=== PATIENT | female | born 1935 | race Caucasian/White ===

== ENCOUNTER 2017-03-09 10:34 | Emergency (ER) | payer MEDICARE, BC ==
[~2017-03-09] VITALS: Ht 154.9 cm; Wt 61.0 kg
[~2017-03-09 10:34] MED LIST: ASPI81CH3; DONE10TA14 PO; LIBRAX PO; LISI40TA PO; ROSU1TAB4 PO
[2017-03-09 10:37] VITALS: BP 153/69; PULSE 76; RESP 18; TEMP 98.1; O2SAT 100
[2017-03-09] MEDS ORDERED: VENTAER INH (11:04)
--- NOTE | 2017-03-09 11:08 | PD ---
HPI Chief Complaint: cough Time Seen by Provider: 10:54 Travel History International Travel<30 days: No Contact w/Intl Traveler<30days: No Traveled to known affect area: No History of Present Illness HPI This patient complains of cough and congestion. Duration one week. Saw her primary physician and was placed on a Z-Corbin which she is partly through. Denies fever or shortness of breath. Symptoms severity is moderate PFSH Past Medical History Dementia: Yes Hypertension: Yes Past Surgical History Mastectomy: Yes (LEFT BREAST) Social History Alcohol Use: No Tobacco Use: No Substance Use: No Allergies-Medications (Allergen,Severity, Reaction): Coded Allergies: No Known Allergies (Unverified , 04/14/16) Reported Meds & Prescriptions Reported Meds & Active Scripts Active Ventolin Hfa 18 GM Inh (Albuterol Sulfate) 90 Mcg/Act Aer 1 Puff INH Q4H PRN Reported Aspirin 81 Low Dose (Aspirin) 81 Mg Chw Rosuvastatin Calcium 5 Mg Tab 5 Mg PO DAILY Librax (Chlordiazepoxide/Clidinium) 5 - Cap 5 - PO Donepezil 10 mg 10 Mg Tab 10 Mg PO DAILY Prinivil 40 mg (Lisinopril) 40 Mg Tab 1 Tab PO DAILY Review of Systems General / Constitutional: No: Fever HENT: No: Headaches Cardiovascular: No: Chest Pain or Discomfort Respiratory: Positive: Cough Physical Exam Narrative GENERAL: Well-nourished, well-developed patient in no apparent distress. SKIN: Focused skin assessment reveals no rash and nodules. Skin is Warm and dry. HEAD: Atraumatic. Normocephalic. EYES: Pupils equal and round. No scleral icterus. No injection or drainage. ENT: No nasal bleeding or discharge. Mucous membranes pink and moist. NECK: Trachea midline. No JVD. CARDIOVASCULAR: Regular rate and rhythm. No murmur appreciated. RESPIRATORY: No accessory muscle use. Clear to auscultation. Breath sounds equal bilaterally. GASTROINTESTINAL: Abdomen soft, non-tender, nondistended. Hepatic and splenic margins not palpable. MUSCULOSKELETAL: No obvious deformities. No clubbing. No cyanosis. No edema. NEUROLOGICAL: Awake and alert. No obvious cranial nerve deficits. Motor grossly within normal limits. Normal speech. PSYCHIATRIC: Appropriate mood and affect; insight and judgment normal. Data Data Last Documented VS Vital Signs Date Time Temp Pulse Resp B/P (MAP) Pulse Ox O2 Delivery O2 Flow Rate FiO2 03/09/17 10:37 98.1 76 18 153/69 (97) 100 Room Air MDM Medical Decision Making Medical Screen Exam Complete: Yes Emergency Medical Condition: Yes Medical Record Reviewed: Yes Differential Diagnosis Bronchitis, pneumonia, URI Narrative Course I have reviewed the patient's electronic medical record. Presentation is consistent with an acute viral bronchitis. She is currently on Zithromax which she will finish She wanted something for cough Prescribed her an albuterol inhaler to try We did discuss the cough is a defense reflux and we are taught not to stifle it with medication however Diagnosis Primary Impression: Acute bronchitis Qualified Codes: J20.9 - Acute bronchitis, unspecified Additional Instructions: The patient was advised to follow up with their physician and return if they worsen. Med/Other Pt SpecificInfo: Prescription(s) given Scripts Albuterol 18 GM Inh (Ventolin Hfa 18 GM Inh) 90 Mcg/Act Aer 1 PUFF INH Q4H Y for SHORTNESS OF BREATH, #1 INHALER 0 Refills Prov: Brayan Vallecillo MD 03/09/17 Disposition: 01 DISCHARGE HOME Condition: Stable Brayan Vallecillo MD Mar 09, 2017 11:08
[2017-03-09] MEDS ORDERED: ZITH250T PO (11:11)
[2017-03-09] MEDS ORDERED: ROSU5 PO (11:11)
[2017-03-09] MEDS ORDERED: LISI40TA PO (11:11)
[2017-03-09] MEDS ORDERED: ASPI81TA11 PO (11:11)
[2017-03-09] MEDS ORDERED: VENL37.5 PO (11:11)
[2017-03-09] MEDS ORDERED: SPIRCAP INH (11:11)
[2017-03-09] MEDS ORDERED: DONE10TA7 PO (11:11)
== END 2017-03-09 11:36 | disposition home or self-care (01) ==
LOC: PHED 10:34
DX: J20.9 Acute bronchitis, unspecified (principal); F03.90 Unspecified dementia, unspecified severity, without behavioral disturbance, psychotic disturbance, mood disturbance, and anxiety; I10 Essential (primary) hypertension
CPT/HCPCS: 99283

== ENCOUNTER 2018-01-07 21:05 | Observation (INO) ==
--- NOTE | 2018-01-07 21:41 | ED ---
HPI General Chief Complaint: Nausea/Vomiting/Diarrhea Stated Complaint: Diff.eating and drinking Source: patient and family Mode of arrival: ambulatory Limitations: other (Limited historian secondary to history of dementia) History of Present Illness HPI narrative: The patient is a 82-year-old female who presents to the emergency department with a family member for dysphagia and possible nausea and vomiting with abdominal pain. The patient is a somewhat limited historian secondary to history of dementia. The patient apparently ate lunch earlier today, sandwich, which she felt like there was food stuck in her throat. The patient went to the bathroom is able to vomit. The patient states she feels like there is something stuck in the neck region, however, she has been able to tolerate water per her report at the assisted living facility. The [facility] apparently called the son who then arrived, picked up the patient, brought the patient to the emergency department. 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 The patient denies any history of previous food bolus impactions and states that she is currently tolerating water. She denies any current abdominal pain or diarrhea. Symptoms are moderate. Related Data Patient : No Home Medications Medication Instructions Recorded Confirmed Aspirin Low Dose 81 mg PO HS 01/07/18 01/07/18 MegaRed [place]-3 Krill Oil 350 mg PO DAILY 01/07/18 01/07/18 azelastine 2 sprays INTRANASAL BID PRN 01/07/18 01/07/18 coconut oil 1,000 mg PO DAILY 01/07/18 01/07/18 diclofenac sodium See Label Instructions .ROUTE 01/07/18 01/07/18 .COMPLEX donepezil 10 mg PO DAILY 01/07/18 01/07/18 lisinopril 40 mg PO DAILY 01/07/18 01/07/18 memantine 10 mg PO DAILY 01/07/18 01/07/18 rosuvastatin 5 mg PO DAILY 01/07/18 01/07/18 venlafaxine 75 mg PO DAILY 01/07/18 01/07/18 vitamin E 400 units PO DAILY 01/07/18 01/07/18 Allergies Allergy/AdvReac Type Severity Reaction Status Date / Time No Known Allergies Allergy Unverified 01/07/18 22:01 Review of Systems Except as stated in HPI: all other systems reviewed are negative Constitutional Denies poor appetite ENT Reports dysphagia Cardiovascular Denies chest pain and Reports pedal edema (Intermittent ankle swelling) Respiratory Denies dyspnea Gastrointestinal Denies abdominal pain, Reports dysphagia, Denies early satiety, Denies nausea, Denies odynophagia and Reports vomiting (Vomited after eating a sandwich at lunchtime) Genitourinary Denies dysuria [facility] Medical History Medical History Breast cancer (Acute) Dementia (Acute) HTN (hypertension) (Acute) Stroke (Acute) Vocal cord paralysis (Acute) Surgical History Surgical History H/O mastectomy (Acute) History of carotid endarterectomy (Acute) Hx of appendectomy (Acute) Hx of tonsillectomy (Acute) Social History Social History Substance History: No History of Abuse Smoking Status: Former smoker How Often Do You Have a Drink Containing Alcohol: Never Recent Out of Country Travel within the Last 8 Weeks: No Exam Narrative Exam Narrative: GENERAL: Awake, alert, pleasant 82-year-old female who appears her stated age and is in no acute respiratory distress. SKIN: Focused skin assessment warm/dry. HEAD: Atraumatic. Normocephalic. EYES: No injection or drainage. ENT: No nasal bleeding or discharge. Mucous membranes pink and moist. NECK: Trachea midline. No JVD. CARDIOVASCULAR: Regular rate and rhythm. No murmur appreciated. RESPIRATORY: No accessory muscle use. Clear to auscultation. Breath sounds equal bilaterally. GASTROINTESTINAL: Abdomen soft, non-tender, nondistended. No rebound tenderness , guarding, rigidity. MUSCULOSKELETAL: No obvious deformities. No clubbing. No cyanosis. Trace pedal edema bilaterally that is pitting. Superficial varicosities noted. NEUROLOGICAL: Awake and alert. No obvious cranial nerve deficits. Motor grossly within normal limits. Normal speech. Oriented to person and place. PSYCHIATRIC: Appropriate mood and affect; insight and judgment normal. Course Reevaluation(s) Reevaluation #1: The patient was reevaluated, unable to drink water. Therefore , the on-call production repairer was paged. I discussed the patient with Dr. Enciso who will try to perform the endoscopy tonight. However, the patient lives in an [facility] may need to stay until morning to have the procedure performed she request 23 hour observation to the hospital service. Time: 22:30 Medical Decision Making MDM Narrative Medical decision making narrative: IV was established, labs are drawn and sent, and the patient was placed on cardiac telemetry monitoring and continuous pulse oximetry monitoring. EKG was ordered and interpreted. Chest x-ray was obtained. The patient was given a p.o. challenge with water. Chest x-ray is unremarkable. Laboratory evaluation is unremarkable, LFTs and lipase are within normal limits. White count is unremarkable. The patient was given a p.o. challenge. The patient drinks water, however, 30 seconds later all of the water came back up. She was unable to pass water. The patient was administer glucagon. There is no improvement in the patient's symptoms. Therefore, the on -call production repairer was paged. I discussed the patient with Dr. Enciso who will try to perform the endoscopy tonight at [facility]. However, she recommends 23 hour observation to the hospitalist service as the patient may not be able had a procedure performed into the morning and then arrangements will need to be made to get the patient back to [facility]. Therefore, [facility] hospitalist were paged for 23 hour observation. I discussed the patient with Dr. Durant who agrees with 23 hour observation. Differential Diagnosis Differential Diagnosis: Differential diagnosis includes food bolus impaction, achalasia, esophageal motility disorder, Schatzki's ring, gastritis, peptic ulcer disease, pancreatitis, ACS. Lab Data Lab results reviewed: Yes I reviewed the patient's lab results. Lab results narrative: The patient's CBC, CMP, and troponin are unremarkable. Result diagrams: 01/07/18 21:51 01/07/18 21:51 Lab Results 01/07/18 01/07/18 Range/Units 21:51 21:51 CBC w Diff Auto diff final WBC 5.6 (4.0-11.0) th/mm3 RBC 4.28 (4.00-5.30) mil/mm3 Hgb 13.1 (11.6-15.3) gm/dL Hct 38.8 (35.0-46.0) % MCV 90.9 (80.0-100.0) fL MCH 30.7 (27.0-34.0) pg MCHC 33.8 (32.0-36.0) % RDW 13.2 (11.6-17.2) % Plt Count 158 (150-450) th/mm3 MPV 9.9 (7.0-11.0) fL Neut % (Auto) 53.4 (16.0-70.0) % Lymph % (Auto) 33.9 (9.0-44.0) % Martin % (Auto) 8.4 H (0.0-8.0) % Eos % (Auto) 2.0 (0.0-4.0) % Baso % (Auto) 2.3 H (0.0-2.0) % Neut # (Auto) 3.0 (1.8-7.7) th/mm3 Lymph # (Auto) 1.9 (1.0-4.8) th/mm3 Martin # (Auto) 0.5 (0.0-0.9) th/mm3 Eos # (Auto) 0.1 (0.0-0.4) th/mm3 Baso # (Auto) 0.1 (0.0-0.2) th/mm3 WBC Differential . Sodium 142 (136-145) meq/L Potassium 4.3 (3.5-5.1) meq/L Chloride 108 H (98-107) meq/L Carbon Dioxide 27.0 (21.0-32.0) meq/L Anion Gap 7 (5-15) meq/L BUN 12 (7-18) mg/dL Creatinine 0.79 (0.50-1.00) mg/dL Estimated GFR 70 L (>89) mL/min Random Glucose 103 (74-106) mg/dL Calcium 9.0 (8.5-10.1) mg/dL Total Bilirubin 0.4 (0.2-1.0) mg/dL AST 18 (15-37) U/L ALT 14 (10-53) U/L Alkaline Phosphatase 88 (45-117) U/L Total Creatine Kinase 55 (26-192) U/L Troponin I Less than 0.02 L (0.02-0.05) ng/mL Total Protein 7.0 (6.4-8.2) g/dL Albumin 3.7 (3.4-5.0) g/dL Lipase 159 (73-393) U/L Imaging Data Attestation: I personally reviewed and interpreted this imaging study as follows : My impression: No acute findings Radiologist's impression: ITS Impressions Chest X-Ray 01/07/18 21:34 CONCLUSION: No acute findings. Surgical clips left axillary region. ECG Data EKG Prior to Arrival: No Attestation: I personally reviewed and interpreted this ECG as follows: Interpretation: EKG reveals normal sinus rhythm with a rate of 67. Right bundle branch block with QRS of 140 ms. WA interval 136 ms. Discharge Plan Discharge Disposition Patient Disposition: 30 Still Patient Discharge Condition Condition: Stable Discharge Details Discharge Problem: Esophageal obstruction due to food impaction Physicians Team ED Provider: Marcelo Aldridge Primary Care Provider: Karen Loaiza Rxs /Orders / Referrals /Forms Prescriptions: No Action Aspirin Low Dose 81 mg PO HS RF: 0 MegaRed [place]-3 Krill Oil 350 mg PO DAILY RF: 0 azelastine 2 sprays Intranasal BID PRN (Reason: Congestion) RF: 0 coconut oil 1,000 mg PO DAILY RF: 0 diclofenac sodium See Label Instructions .ROUTE .COMPLEX RF: 0 donepezil 10 mg PO DAILY RF: 0 lisinopril 40 mg PO DAILY RF: 0 memantine 10 mg PO DAILY RF: 0 rosuvastatin 5 mg PO DAILY RF: 0 venlafaxine 75 mg PO DAILY RF: 0 vitamin E 400 units PO DAILY RF: 0 Status ED Status: Admitted Observation Patient
[2018-01-07] MEDS ORDERED: Sod Chloride 0.9% Inj 1,000 ML IV.CONT SCH ×2 (21:45→23:15)
[2018-01-07 21:58] LABS: Baso # (Auto) 0.1 th/mm3 (0.0-0.2); Baso % (Auto) 2.3 % (0.0-2.0); Eos # (Auto) 0.1 th/mm3 (0.0-0.4); Hematocrit 38.8 % (35.0-46.0); Hemoglobin 13.1 gm/dL (11.6-15.3); Lymph # (Auto) 1.9 th/mm3 (1.0-4.8); Lymph % (Auto) 33.9 % (9.0-44.0); Mean Corpuscular HGB Conc 33.8 % (32.0-36.0); Mean Corpuscular Hemoglobin 30.7 pg (27.0-34.0); Mean Corpuscular Volume 90.9 fL (80.0-100.0); Mean Platelet Volume 9.9 fL (7.0-11.0); Mono # (Auto) 0.5 th/mm3 (0.0-0.9); Mono % (Auto) 8.4 % (0.0-8.0); Neut % (Auto) 53.4 % (16.0-70.0); Platelet Count 158 th/mm3 (150-450); Red Blood Count 4.28 mil/mm3 (4.00-5.30); Red Cell Distribution Width 13.2 % (11.6-17.2); White Blood Count 5.6 th/mm3 (4.0-11.0)
--- NOTE | 2018-01-07 22:06 | XR ---
EXAM DATE: 01/07/2018 9:58 PM EDT AGE/SEX: 82 years / Female INDICATIONS: Shortness of breath. CLINICAL DATA: This is the patient's initial encounter. Patient reports that signs and symptoms have been present for 1 day and indicates a pain score of Nonresponsive. MEDICAL/SURGICAL HISTORY: None. None. COMPARISON: No prior exams available for comparison. FINDINGS: A single AP view of the chest demonstrates the lungs to be symmetrically aerated without evidence of mass, infiltrate or effusion. The cardiomediastinal contours are unremarkable. Osseous structures a re intact. CONCLUSION: No acute findings. Surgical clips left axillary region. Electronically signed by: Ernst Jeffries MD 01/07/2018 10:05 PM EDT
[2018-01-07 22:07] LABS: Chloride 108 meq/L (98-107); Potassium 4.3 meq/L (3.5-5.1); Sodium 142 meq/L (136-145)
[2018-01-07 22:12] LABS: Albumin 3.7 g/dL (3.4-5.0); Anion Gap 7 meq/L (5-15); Blood Urea Nitrogen 12 mg/dL (7-18); Glucose,Random 103 mg/dL (74-106); Lipase 159 U/L (73-393)
[2018-01-07 22:15] LABS: Alanine Aminotransferase 14 U/L (10-53); Aspartate Aminotransferase 18 U/L (15-37); Glomerular Filtration Rate 70 mL/min (>89)
[2018-01-07 22:17] LABS: Alkaline Phosphatase 88 U/L (45-117)
[2018-01-07 22:23] LABS: Creatine Kinase 55 U/L (26-192)
[2018-01-07] MEDS ORDERED: Bisacodyl 10 MG Supp RECTAL PRN (23:05)
[2018-01-08] MEDS ORDERED: Chlorhexidine Gluconate 2% 1 Pack (2 Cloths) TOPICAL SCH (00:30)
[2018-01-08] MEDS ORDERED: Sodium Chlor 0.9% Inj 500 ML IV.SIG SCH (01:00)
--- NOTE | 2018-01-08 01:20 | MR ---
cc: Deb Enciso MD DATE: 01/08/2018 REFERRING PHYSICIAN: Dr. Durant REASON FOR CONSULTATION AND PROCEDURE: Dysphagia, odynophagia, inability to swallow saliva, foreign body in the esophagus. CONSENT: After the risks, benefits, alternatives, indications, and limitations were explained to the patient and her son, consent was signed. They were informed about the risk of bleeding, perforation, oversedation, allergic reaction to the medication, missed lesion or failed procedure. DESCRIPTION OF PROCEDURE: The patient was placed in the left lateral decubitus and after the patient was fully sedated by Anesthesia, upper endoscope was gently sent through the oral cavity, and under direct visualization, esophagus was intubated. In the distal esophagus, a foreign body consistent with a food bolus was seen that was pushed down into the stomach. Then, the scope was introduced into the stomach and down into the duodenum. Then, the scope was slowly withdrawn and the mucosa was fully examined, including color, texture, anatomy and motility. In the fundus, retroflexion was performed. FINDINGS: Stricture in the distal esophagus with superficial erosions, very friable, bleeding easily, possibly secondary to recent food bolus impaction. Biopsy was performed. No dilatation was done at this time secondary to the above. No other pathology was noted. RECOMMENDATION: Soft diet. Start proton pump inhibitors b.i.d. Upper endoscopy with dilatation in a week. Chew food well, cut food in small pieces. I would like to thank Dr. Durant for referring her to our office for consultation. Deb Enciso MD BSB/SM , 12:58 AM , 01:18 AM
[2018-01-08 06:25] LABS: Chloride 113 meq/L (98-107); Potassium 3.9 meq/L (3.5-5.1); Sodium 147 meq/L (136-145)
[2018-01-08 06:31] LABS: Albumin 3.2 g/dL (3.4-5.0); Anion Gap 8 meq/L (5-15); Blood Urea Nitrogen 11 mg/dL (7-18); Calcium 8.5 mg/dL (8.5-10.1); Carbon Dioxide 25.9 meq/L (21.0-32.0); Glucose,Random 94 mg/dL (74-106)
[2018-01-08 06:34] LABS: Alanine Aminotransferase 16 U/L (10-53); Aspartate Aminotransferase 11 U/L (15-37); Glomerular Filtration Rate Greater Than 89 mL/min (>89)
[2018-01-08 06:35] LABS: Baso % (Auto) 0.3 % (0.0-2.0); Eos # (Auto) 0.1 th/mm3 (0.0-0.4); Eos % (Auto) 2.1 % (0.0-4.0); Hematocrit 36.6 % (35.0-46.0); Lymph # (Auto) 1.5 th/mm3 (1.0-4.8); Lymph % (Auto) 29.2 % (9.0-44.0); Mean Corpuscular HGB Conc 32.8 % (32.0-36.0); Mean Corpuscular Hemoglobin 29.8 pg (27.0-34.0); Mean Corpuscular Volume 90.9 fL (80.0-100.0); Mean Platelet Volume 9.8 fL (7.0-11.0); Mono # (Auto) 0.5 th/mm3 (0.0-0.9); Mono % (Auto) 9.7 % (0.0-8.0); Neut # (Auto) 3.2 th/mm3 (1.8-7.7); Neut % (Auto) 58.7 % (16.0-70.0); Platelet Count 146 th/mm3 (150-450); Red Blood Count 4.02 mil/mm3 (4.00-5.30); White Blood Count 5.3 th/mm3 (4.0-11.0)
[2018-01-08 06:36] LABS: Total Protein 6.1 g/dL (6.4-8.2)
[2018-01-08 06:37] LABS: Alkaline Phosphatase 80 U/L (45-117)
[2018-01-08 07:49] VITALS: RESP 20
[2018-01-08] MEDS ORDERED: hydrALAZINE HCl Inj 20 MG/ML Vial IV.PUSH PRN (08:46)
--- NOTE | 2018-01-08 08:46 | P.HP ---
History of Present Illness Primary Care Physician: Karen Loaiza MD History of Present Illness: 82-year-old female with known history of hypertension, history of breast cancer , dementia who presented to the emergency department because of sudden onset of difficulty in swallowing food. Patient states that approximate 1 PM yesterday she tried to drink something in it would get stuck right in the middle part of her chest and she felt some bubbling and gurgling and come right back up again. Patient was not able to tolerate anything by mouth throughout the remaining days so she brought to the emergency department by son. Patient had workup done in the emergency department and a urgent endoscopy performed by Dr. Enciso. Patient had a stricture in the distal esophagus with superficial erosions are very friable, bleeding easily and possibly secondary to recent food bolus impaction. Is recommended patient start a soft diet, start proton pump inhibitor twice daily. Upper endoscopy again in 1 week. However when evaluated patient this morning she was still having difficulty with liquids and solids. She is not able to swallow again and she feels as if it goes to the mid part of her chest again it comes right back up. States that it is no different than when she started her symptoms yesterday. - Diagnosis (1) Dysphagia (2) Hypertension Review of Systems All other systems reviewed negative except as stated in HPI Gastrointestinal: Reports difficulty swallowing PMFSH - History History Provided By: Patient - Medical History Medical History: Medical History (Last Reviewed 01/08/18 @ 08:29 by PEYTON Ruiz) Breast cancer Dementia HTN (hypertension) Stroke Vocal cord paralysis - Surgical History Surgical History: Surgical History (Last Reviewed 01/08/18 @ 08:29 by PEYTON Ruiz) H/O mastectomy History of carotid endarterectomy Hx of appendectomy Hx of tonsillectomy - Family History Family History: Family History (Last Reviewed 01/08/18 @ 08:29 by PEYTON Ruiz) Father Heart disease Mother Natural - Tobacco History Second Hand Smoke Exposure: No Tobacco Use In Past 30 Days: No Smoking Status: Former smoker - Alcohol History How Often Do You Have a Drink Containing Alcohol: Monthly or less - Substance Use History Substance History: No History of Abuse - Travel History Recent Travel Out of the Country Within the Last 8 Weeks: No - Immunization History Tetanus Immunization: Unsure Medications and Allergies Active Medications: Active Medications Al Hydroxide/Mg Hydroxide (Milk Of Katia [place]) 30 ml PO Q12H PRN PRN Reason: Mild Constipation Bisacodyl (Dulcolax Supp) 10 mg RECTAL DAILY PRN PRN Reason: SEVERE CONSITIPATION Chlorhexidine Gluconate (Chlorhexidine 2% Cloth) 3 pack TOPICAL PRODUCT SAFETY ADMINISTRATOR [facility] Stop: 01/11/18 00:17 Sodium Chloride (Ns Inj) 1,000 mls @ 65 mls/hr IV.CONT .[id number] [facility] Last Infusion: 01/08/18 01:15 Dose: Infused Lactated Ringer's (Lr 1000 Ml Inj) 1,000 mls @ 30 mls/hr IV.SIG .Q24H [facility] Stop: 01/11/18 00:17 Last Admin: 01/08/18 02:18 Dose: 30 mls/hr Sodium Chloride (Ns Inj) 500 mls @ 30 mls/hr IV.SIG .Q10H [facility] Stop: 01/11/18 00:17 Lactulose (Lactulose Liq) 30 ml PO DAILY PRN PRN Reason: SEVERE CONSITIPATION Pantoprazole Sodium (Protonix) 20 mg PO DAILY [facility] Povidone Iodine (Betadine 5% Antisepsis Kit) 1 applicatio EACH NARE PRODUCT SAFETY ADMINISTRATOR [facility] Stop: 01/11/18 00:17 Sennosides (Senokot) 17.2 mg PO Q12H PRN PRN Reason: Moderate Constipation Sodium Chloride (Ns Flush) 2 ml IV.FLUSH PRN PRN PRN Reason: FLUSH AFTER USING IV ACCESS Allergies Allergy/AdvReac Type Severity Reaction Status Date / Time No Known Allergies Allergy Verified 01/08/18 00:16 Home Medications Medication Instructions Recorded Confirmed Type Aspirin Low Dose 81 mg PO HS 01/07/18 01/07/18 History MegaRed [place]-3 Krill Oil 350 mg PO DAILY 01/07/18 01/07/18 History azelastine 2 sprays INTRANASAL BID PRN 01/07/18 01/07/18 History coconut oil 1,000 mg PO DAILY 01/07/18 01/07/18 History diclofenac sodium See Label Instructions .ROUTE 01/07/18 01/07/18 History .COMPLEX donepezil 10 mg PO DAILY 01/07/18 01/07/18 History lisinopril 40 mg PO DAILY 01/07/18 01/07/18 History memantine 10 mg PO DAILY 01/07/18 01/07/18 History rosuvastatin 5 mg PO DAILY 01/07/18 01/07/18 History venlafaxine 75 mg PO DAILY 01/07/18 01/07/18 History vitamin E 400 units PO DAILY 01/07/18 01/07/18 History Exam Vital signs: Vital Signs 01/07/18 23:45 01/07/18 23:49 01/07/18 23:53 Temperature 97.3 F L Pulse Rate 80 66 Respiratory Rate 16 16 Blood Pressure 206/84 H 192/70 H Pulse Oximetry 97 100 01/08/18 00:51 01/08/18 01:15 01/08/18 01:20 Temperature 98.0 F Pulse Rate 76 71 71 Respiratory Rate 18 18 Blood Pressure 152/70 H 141/64 H Pulse Oximetry 100 99 01/08/18 04:00 01/08/18 07:48 Temperature 98.3 F 97 F L Pulse Rate 77 77 Respiratory Rate 16 20 Blood Pressure 146/65 H 146/66 H Pulse Oximetry 96 97 Intake & Output 01/07/18 01/08/18 01/08/18 18:59 06:59 18:59 Intake Total 400 / 400 Output Total 0 / 0 Balance 400 / 400 Weight 65.8 kg Intake: IV 400 / 400 NS Inj 1,000 ML @ 65 mls/hr IV. 400 / 400 CONT .[id number] [facility] Rx#: [id number] Output: Urine 0 / 0 Other: # Voids 0 Weight On Admission 63.503 kg Narrative: GENERAL: Well-developed, well-nourished, in no acute distress. alert and orientated HEENT: Head is normocephalic without any lesions or masses noted. Facial features are symmetric. Eyes: Pupils equal round reactive to light. Extraocular muscles are intact. Conjunctivae were clear. Oropharyngeal: Pharynx without any erythema edema. Tongue is midline without deviation. Buccal mucosa is moist without any masses or lesions NECK: Supple without any masses. Trachea midline no deviation. No JVD, no bruits are appreciated CARDIAC: Regular rhythm, regular rate. S1/S2 are heard. No murmurs gallops or rubs. LUNGS: Clear to auscultation bilaterally. No wheeze, rhonchi or rales. No use of accessory muscles on inspiration or expiration. ABDOMEN: Soft, nontender. Nondistended. Bowel sounds heard in all 4 quadrants. No organomegaly or masses. Negative rebound, negative guarding EXTREMITIES: No edema, pulses are equal bilaterally. No cyanosis or clubbing NEUROLOGY: Mood and affect appear appropriate. Cranial nerves II through XII grossly intact. Muscle strength 5/5 in upper and lower extremities bilaterally. Deep tendon reflexes are 2+ in upper and lower extremities bilaterally. Results - Labs CBC & Chem 7: 01/08/18 05:28 01/08/18 05:28 Labs: Laboratory Results - last 24 hr 01/07/18 01/07/18 01/08/18 21:51 21:51 05:28 CBC w Diff Auto diff final Auto diff final WBC 5.6 5.3 RBC 4.28 4.02 Hgb 13.1 12.0 Hct 38.8 36.6 MCV 90.9 90.9 MCH 30.7 29.8 MCHC 33.8 32.8 RDW 13.2 13.0 Plt Count 158 146 L MPV 9.9 9.8 Neut % (Auto) 53.4 58.7 Lymph % (Auto) 33.9 29.2 Bureau % (Auto) 8.4 H 9.7 H Eos % (Auto) 2.0 2.1 Baso % (Auto) 2.3 H 0.3 Neut # (Auto) 3.0 3.2 Lymph # (Auto) 1.9 1.5 Bureau # (Auto) 0.5 0.5 Eos # (Auto) 0.1 0.1 Baso # (Auto) 0.1 0.0 WBC Differential . . Sodium 142 Potassium 4.3 Chloride 108 H Carbon Dioxide 27.0 Anion Gap 7 BUN 12 Creatinine 0.79 Estimated GFR 70 L Random Glucose 103 Calcium 9.0 Total Bilirubin 0.4 AST 18 ALT 14 Alkaline Phosphatase 88 Total Creatine Kinase 55 Troponin I Less than 0.02 L Total Protein 7.0 Albumin 3.7 Lipase 159 01/08/18 05:28 CBC w Diff WBC RBC Hgb Hct MCV MCH MCHC RDW Plt Count MPV Neut % (Auto) Lymph % (Auto) Bureau % (Auto) Eos % (Auto) Baso % (Auto) Neut # (Auto) Lymph # (Auto) Bureau # (Auto) Eos # (Auto) Baso # (Auto) WBC Differential Sodium 147 H Potassium 3.9 Chloride 113 H Carbon Dioxide 25.9 Anion Gap 8 BUN 11 Creatinine 0.61 Estimated GFR Greater than 89 Random Glucose 94 Calcium 8.5 Total Bilirubin 0.6 AST 11 L ALT 16 Alkaline Phosphatase 80 Total Creatine Kinase Troponin I Total Protein 6.1 L D Albumin 3.2 L Lipase - Imaging Impressions Chest X-Ray 01/07/18 21:34 CONCLUSION: No acute findings. Surgical clips left axillary region. Caprini VTE Risk Assessment Caprini VTE Risk Assessment: Moderate/High Risk (score >= 2) Caprini Risk Assessment Model: Point Value = 1 Point Value = 2 Point Value = 3 Point Value = 5 Age 41-60 Minor surgery BMI > 25 kg/m2 Swollen legs Varicose veins or History of unexplained or recurrent spontaneous Oral contraceptives or hormone replacement Sepsis (< 1 month) Serious lung disease, including pneumonia (< 1 month) Abnormal pulmonary function Acute myocardial infarction Congestive heart failure (< 1 month) History of inflammatory bowel disease Medical patient at bed rest Age 61-74 Arthroscopic surgery Major open surgery (> 45 min) Laparoscopic surgery (> 45 min) Malignancy Confined to bed (> 72 hours) Immobilizing plaster cast Central venous access Age >= 75 History of VTE Family history of VTE Factor V Leiden Prothrombin [id number] Lupus anticoagulant Anticardiolipin antibodies Elevated serum homocysteine Heparin-induced thrombocytopenia Other congenital or acquired thrombophilia Stroke (< 1 month) Elective arthroplasty Hip, pelvis, or leg fracture Acute spinal cord injury (< 1 month) Prophylaxis Regimen: Total Risk Factor Score Risk Level Prophylaxis Regimen 0-1 Low Early ambulation 2 Moderate Order ONE of the following: *Sequential Compression Device (SCD) *Heparin 5000 units SQ BID 3-4 Higher Order ONE of the following medications: *Heparin 5000 units SQ TID *Enoxaparin/Lovenox 40 mg SQ daily (WT < 150 kg, CrCl > 30 mL/min) *Enoxaparin/Lovenox 30 mg SQ daily (WT < 150 kg, CrCl > 10-29 mL/min) *Enoxaparin/Lovenox 30 mg SQ BID (WT < 150 kg, CrCl > 30 mL/min) AND/OR *Sequential Compression Device (SCD) 5 or more Highest Order ONE of the following medications: *Heparin 5000 units SQ TID (Preferred with Epidurals) *Enoxaparin/Lovenox 40 mg SQ daily (WT < 150 kg, CrCl > 30 mL/min) *Enoxaparin/Lovenox 30 mg SQ daily (WT < 150 kg, CrCl > 10-29 mL/min) *Enoxaparin/Lovenox 30 mg SQ BID (WT < 150 kg, CrCl > 30 mL/min) AND *Sequential Compression Device (SCD) Assessment and Plan - Assessment (1) Dysphagia Code(s): R13.10 - Dysphagia, unspecified Status: Acute Onset Date: ~ Plan: -Patient has undergone emergent endoscopy with stricture and food bolus impaction which was pushed into the stomach. -GI recommended the patient follow-up in 1 week for dilatation -Patient still unable to swallow any liquids or solids at this time -Make patient n.p.o. again -Discussed with financial advisor who indicated the patient can undergo speech therapy evaluation with possible modified barium swallow -Patient will likely need to undergo endoscopy again with dilatation if her symptoms persist (2) Hypertension Code(s): I10 - Essential (primary) hypertension Status: Acute Plan: -Patient unable tolerate anything by mouth at this time -IV Vasotec and Apresoline as needed -We will start oral medication once patient able to swallow. - Plan DVT prevention -Sequential compression devices (1) Dysphagia Qualifiers: Dysphagia type: oropharyngeal phase Qualified Code(s): R13.12 - Dysphagia, oropharyngeal phase
[2018-01-08] MEDS ORDERED: Pantoprazole Sodium 20 MG DR Tablet PO SCH (09:00)
[2018-01-08] MEDS ORDERED: Sodium Chloride 0.45 % Inj 1,000 ML IV.CONT SCH (09:00)
[2018-01-08] MEDS: Sodium Chloride 0.45 % Inj 1,000 ML IV.CONT SCH (14:37)
[2018-01-08] MEDS ORDERED: Pantoprazole Inj 40 MG Vial IV.PUSH SCH (15:00)
--- NOTE | 2018-01-08 15:30 | MB ---
cc: Deb Enciso MD DATE: 01/08/2018 REFERRING PHYSICIAN: Dr. Richardson DATE OF CONSULTATION: 01/08/2018 REASON FOR CONSULTATION: Dysphagia, inability to swallow, foreign body in the esophagus. HISTORY OF PRESENT ILLNESS: Mrs. Patel is an 82-year-old lady with history of breast cancer, hypertension and dementia, who was brought by her family after she was noted to have difficulty swallowing. According to the family, around 1 p.m. yesterday she tried to drink something, got stuck in the middle of her chest, felt some bubbling and gurgling and came right back up. Since then, she was unable to tolerate any kind of food. She was brought here for further evaluation and treatment of by her son. According to the son, she never had this type of problem before. There was a history of vocal cord surgery, but no other history in regard to reflux or dysphagia. PAST MEDICAL HISTORY: Breast cancer, dementia, hypertension, vocal cord paralysis, history of stroke. PAST SURGICAL HISTORY: Mastectomy, carotid endarterectomy, appendectomy and tonsillectomy. FAMILY HISTORY: No information is available. SOCIAL HISTORY: Denies smoking, drinking or drug use. ALLERGIES: NO KNOWN ALLERGIES. MEDICATIONS: 1. Bisacodyl. 2. Enalapril. 3. Lactulose. 3. Protonix. REVIEW OF SYSTEMS: The patient is unable to give a good history, but there is no history of weight loss, fever or chills, melena, hematemesis, hematochezia or any other GI symptoms or complaint. PHYSICAL EXAMINATION: GENERAL: She is sitting comfortably in bed in no acute distress. VITAL SIGNS: Temperature 97.3, heart 80, respirations 16, blood pressure 192/70. HEENT: PERRLA. NECK: No JVD. No lymphadenopathy. CHEST: Clear to auscultation and palpation. CARDIOVASCULAR: S1, S2. No murmur. ABDOMEN: Soft, nontender. Bowel sounds are present. CENTRAL NEUROLOGIC SYSTEM: She is awake, alert, but confused. LABORATORY DATA: Her hemoglobin is 12, platelets 146. White count 5.3. Sodium 147. Creatinine is 3. Potassium 3.9. IMAGING STUDIES: The patient had no imaging here. IMPRESSION: Esophageal obstruction secondary to foreign body, most likely food bolus. Needs emergent endoscopy. RECOMMENDATIONS: Endoscopy will be scheduled with possible dilatation and foreign body removal. Findings were discussed with the son. I would like to thank Dr. Richardson for referring her to our office for consultation. Further recommendation will depend on the patient's clinical status and the above results. MD NITZA RooneyB/SB , 02:54 PM , 03:27 PM
--- NOTE | 2018-01-08 18:03 | ECG ---
Date Performed: 01/07/2018 Time Performed: 21:47:02 PTAGE: 82 years EKG: Sinus rhythm WITH OCCASIONAL SUPRAVENTRICULAR PREMATURE COMPLEXES POSSIBLE LEFT ATRIAL ENLARGEMENT RIGHT BUNDLE B RANCH BLOCK ABNORMAL ECG NO PREVIOUS TRACING DOCTOR: Rachel Abarca Interpretating Date/Time 01/08/2018 17:59:19
--- NOTE | 2018-01-08 18:50 | P.PNGI ---
Subjective Interval history: Patient is a 82-year-old female who underwent EGD with removal of piece of steak and dilation of the esophagus early this morning by Dr. Enciso. Patient reported dysphagia persisting even after the procedure. She underwent a speech/ swallow evaluation this morning. Since then she is able to eat liquid diet. Patient denies any chest pain nausea vomiting GI bleeding fever chills. Physical Exam Vital signs: Vital Signs 01/07/18 23:45 01/07/18 23:49 01/07/18 23:53 Temperature 97.3 F L Pulse Rate 80 66 Respiratory Rate 16 16 Blood Pressure 206/84 H 192/70 H Pulse Oximetry 97 100 01/08/18 00:51 01/08/18 01:15 01/08/18 01:20 Temperature 98.0 F Pulse Rate 76 71 71 Respiratory Rate 18 18 Blood Pressure 152/70 H 141/64 H Pulse Oximetry 100 99 01/08/18 04:00 01/08/18 07:48 01/08/18 08:00 Temperature 98.3 F 97 F L Pulse Rate 77 77 74 Respiratory Rate 16 20 Blood Pressure 146/65 H 146/66 H Pulse Oximetry 96 97 01/08/18 11:53 01/08/18 15:08 Temperature 97.2 F L 96.8 F L Pulse Rate 74 81 Respiratory Rate 20 20 Blood Pressure 142/68 H 148/65 H Pulse Oximetry 97 100 Intake & Output 01/07/18 01/08/18 01/08/18 18:59 06:59 18:59 Intake Total 400 / 400 0 / 0 Output Total 0 / 0 0 / 0 Balance 400 / 400 0 / 0 Weight 65.8 kg Intake: IV 400 / 400 NS Inj 1,000 ML @ 65 mls/hr IV. 400 / 400 CONT .[id number] [facility] Rx#: [id number] Oral 0 / 0 Output: Urine 0 / 0 0 / 0 Other: # Voids 0 3 Weight On Admission 63.503 kg - Routine HEENT Exam Head: Present: normocephalic Eye: Present: EOMI, PERRL ENT: Present: mucous membranes moist - Routine Neck Exam Present: supple - Routine Respiratory Exam Present: CTA bilaterally - Routine Cardiovascular Exam Present: RRR - Routine Abdominal Exam Present: soft, normoactive bowel sounds Results - Labs CBC & Chem 7: 01/08/18 05:28 01/08/18 05:28 Laboratory Results - last 24 hr 01/07/18 01/07/18 01/08/18 21:51 21:51 05:28 CBC w Diff Auto diff final Auto diff final WBC 5.6 5.3 RBC 4.28 4.02 Hgb 13.1 12.0 Hct 38.8 36.6 MCV 90.9 90.9 MCH 30.7 29.8 MCHC 33.8 32.8 RDW 13.2 13.0 Plt Count 158 146 L MPV 9.9 9.8 Neut % (Auto) 53.4 58.7 Lymph % (Auto) 33.9 29.2 [place] % (Auto) 8.4 H 9.7 H Eos % (Auto) 2.0 2.1 Baso % (Auto) 2.3 H 0.3 Neut # (Auto) 3.0 3.2 Lymph # (Auto) 1.9 1.5 [place] # (Auto) 0.5 0.5 Eos # (Auto) 0.1 0.1 Baso # (Auto) 0.1 0.0 WBC Differential . . Sodium 142 Potassium 4.3 Chloride 108 H Carbon Dioxide 27.0 Anion Gap 7 BUN 12 Creatinine 0.79 Estimated GFR 70 L Random Glucose 103 Calcium 9.0 Total Bilirubin 0.4 AST 18 ALT 14 Alkaline Phosphatase 88 Total Creatine Kinase 55 Troponin I Less than 0.02 L Total Protein 7.0 Albumin 3.7 Lipase 159 01/08/18 05:28 CBC w Diff WBC RBC Hgb Hct MCV MCH MCHC RDW Plt Count MPV Neut % (Auto) Lymph % (Auto) [place] % (Auto) Eos % (Auto) Baso % (Auto) Neut # (Auto) Lymph # (Auto) [place] # (Auto) Eos # (Auto) Baso # (Auto) WBC Differential Sodium 147 H Potassium 3.9 Chloride 113 H Carbon Dioxide 25.9 Anion Gap 8 BUN 11 Creatinine 0.61 Estimated GFR Greater than 89 Random Glucose 94 Calcium 8.5 Total Bilirubin 0.6 AST 11 L ALT 16 Alkaline Phosphatase 80 Total Creatine Kinase Troponin I Total Protein 6.1 L D Albumin 3.2 L Lipase - Imaging Impressions Chest X-Ray 01/07/18 21:34 CONCLUSION: No acute findings. Surgical clips left axillary region. - Procedures Results of swallow/speech evaluation awaited Assessment and Plan (1) Benign esophageal stricture Status: Acute Code(s): K22.2 - Esophageal obstruction (2) Dysphagia Status: Acute Code(s): R13.10 - Dysphagia, unspecified - Plan 1. Barium upper GI series 2. Continue present treatment
[2018-01-09] MEDS: Sodium Chloride 0.45 % Inj 1,000 ML IV.CONT SCH (04:25)
[2018-01-09 06:17] LABS: Chloride 110 meq/L (98-107); Potassium 3.7 meq/L (3.5-5.1); Sodium 144 meq/L (136-145)
[2018-01-09 06:19] LABS: Calcium 8.5 mg/dL (8.5-10.1)
[2018-01-09 06:20] LABS: Anion Gap 11 meq/L (5-15); Blood Urea Nitrogen 9 mg/dL (7-18); Carbon Dioxide 23.5 meq/L (21.0-32.0); Glucose,Random 93 mg/dL (74-106)
[2018-01-09 06:23] LABS: Glomerular Filtration Rate Greater Than 89 mL/min (>89)
[2018-01-09 06:34] LABS: Eos # (Auto) 0.1 th/mm3 (0.0-0.4); Eos % (Auto) 3.3 % (0.0-4.0); Hematocrit 35.6 % (35.0-46.0); Hemoglobin 12.4 gm/dL (11.6-15.3); Lymph # (Auto) 1.3 th/mm3 (1.0-4.8); Lymph % (Auto) 29.8 % (9.0-44.0); Mean Corpuscular HGB Conc 34.9 % (32.0-36.0); Mean Corpuscular Hemoglobin 31.2 pg (27.0-34.0); Mean Corpuscular Volume 89.4 fL (80.0-100.0); Mean Platelet Volume 9.9 fL (7.0-11.0); Mono # (Auto) 0.4 th/mm3 (0.0-0.9); Mono % (Auto) 8.6 % (0.0-8.0); Neut # (Auto) 2.5 th/mm3 (1.8-7.7); Neut % (Auto) 57.3 % (16.0-70.0); Platelet Count 127 th/mm3 (150-450); Red Blood Count 3.98 mil/mm3 (4.00-5.30); Red Cell Distribution Width 13.5 % (11.6-17.2); White Blood Count 4.3 th/mm3 (4.0-11.0)
[2018-01-09 09:18] VITALS: BP 195/80; PULSE 72; TEMP 97; O2SAT 97
--- NOTE | 2018-01-09 10:41 | P.DS ---
Date of admission: 01/07/18 23:05 Primary care physician: Karen Loaiza MD Attending physician on discharge: Moriah Richardson Anticipated date of discharge: 01/09/18 Brief History from admission: 82-year-old female with known history of hypertension, history of breast cancer , dementia who presented to the emergency department because of sudden onset of difficulty in swallowing food. Patient states that approximate 1 PM yesterday she tried to drink something in it would get stuck right in the middle part of her chest and she felt some bubbling and gurgling and come right back up again. Patient was not able to tolerate anything by mouth throughout the remaining days so she brought to the emergency department by son. Patient had workup done in the emergency department and a urgent endoscopy performed by Dr. Enciso. Patient had a stricture in the distal esophagus with superficial erosions are very friable, bleeding easily and possibly secondary to recent food bolus impaction. Is recommended patient start a soft diet, start proton pump inhibitor twice daily. Upper endoscopy again in 1 week. However when evaluated patient this morning she was still having difficulty with liquids and solids. She is not able to swallow again and she feels as if it goes to the mid part of her chest again it comes right back up. States that it is no different than when she started her symptoms yesterday. DS: Diagnosis - Discharge Diagnosis (1) Dysphagia Status: Acute (2) Hypertension Status: Acute DS: Medications - Discharge Medications Prescriptions: pantoprazole [Protonix] 40 mg PO DAILY #30 tab DS: Summary Hospital Course: 82-year-old female who originally presented to the emergency department because of difficulty in swallowing. Patient found to have a impacted food bolus and was taken for emergency endoscopy where the food was pushed down into the stomach. The area was very irritated and friable secondary to the bolus. The patient was started on a liquid and soft diet, however patient was unable to tolerated. Patient had a speech therapy evaluation performed which indicated that she is tolerating liquid diet. Patient underwent modified barium swallow with speech therapy and patient did quite well and radiologist recommending soft diet. Records Technician indicated the patient will need to follow-up outpatient for further evaluation and possible stricture dilatation once the irritation from the food bolus improves. Patient clinically stable this time. She is tolerating liquids. We will plan discharge accordingly. - Time Spent with Patient Total time spent providing and/or coordinating discharge services: - Quality: VTE Deep Vein Thrombosis/Pulmonary Embolism Present on Admission: No Exam Vital signs: Vital Signs 01/08/18 11:53 01/08/18 15:08 01/08/18 20:00 Temperature 97.2 F L 96.8 F L 96.8 F L Pulse Rate 74 81 77 Respiratory Rate 20 20 20 Blood Pressure 142/68 H 148/65 H 179/75 H Pulse Oximetry 97 100 100 01/09/18 00:00 01/09/18 04:00 01/09/18 08:00 Temperature 97.1 F L 97.1 F L 97 F L Pulse Rate 80 71 72 Respiratory Rate 20 20 20 Blood Pressure 155/71 H 171/74 H 195/80 H Pulse Oximetry 98 100 97 Intake & Output 01/08/18 01/09/18 01/09/18 18:59 06:59 18:59 Intake Total 0 / 0 2600 / 2600 Output Total 0 / 0 Balance 0 / 0 2600 / 2600 Weight 65.7 kg Intake: IV 2600 / 2600 1/2 Normal Saline Inj 1,000 ML 1000 / 1000 @ 70 mls/hr IV.CONT .[id number] [facility] Rx#:[id number] LR 1000 mL Inj 1,000 ML @ 30 1000 / 1000 mls/hr IV.SIG .Q24H [facility] Rx#: [id number] Oral 0 / 0 0 / 0 Output: Urine 0 / 0 Other: # Voids 3 1 Narrative: GENERAL: Well-developed, well-nourished, in no acute distress. alert and orientated HEENT: Head is normocephalic without any lesions or masses noted. Facial features are symmetric. Eyes: Extraocular muscles are intact. Conjunctivae were clear. NECK: Supple without any masses. Trachea midline no deviation. No JVD, CARDIAC: Regular rhythm, regular rate. S1/S2 are heard. No murmurs gallops or rubs. LUNGS: Clear to auscultation bilaterally. No wheeze, rhonchi or rales. No use of accessory muscles on inspiration or expiration. ABDOMEN: Soft, nontender. Nondistended. Bowel sounds heard in all 4 quadrants. No organomegaly or masses. Negative rebound, negative guarding EXTREMITIES: No edema, pulses are equal bilaterally. No cyanosis or clubbing NEUROLOGY: Mood and affect appear appropriate. Cranial nerves II through XII grossly intact. Moving all extremities, speech is clear Results Procedures completed during hospitalization: Results of swallow/speech evaluation awaited Labs on day of discharge: Labs from last 24 hours 01/09/18 01/09/18 04:55 04:55 CBC w Diff Auto diff final WBC 4.3 RBC 3.98 L Hgb 12.4 Hct 35.6 MCV 89.4 MCH 31.2 MCHC 34.9 RDW 13.5 Plt Count 127 L MPV 9.9 Neut % (Auto) 57.3 Lymph % (Auto) 29.8 [place] % (Auto) 8.6 H Eos % (Auto) 3.3 Baso % (Auto) 1.0 Neut # (Auto) 2.5 Lymph # (Auto) 1.3 [place] # (Auto) 0.4 Eos # (Auto) 0.1 Baso # (Auto) 0.0 WBC Differential . Sodium 144 Potassium 3.7 Chloride 110 H Carbon Dioxide 23.5 Anion Gap 11 BUN 9 Creatinine 0.56 Estimated GFR Greater than 89 Random Glucose 93 Calcium 8.5 - Impressions ITS Impressions Chest X-Ray 01/07/18 21:34 CONCLUSION: No acute findings. Surgical clips left axillary region. Discharge Plan - Discharge Disposition Patient Disposition: 01 Discharge Home - Discharge Condition Condition: Stable - Discharge Order Discharge Orders: Discharge Order (Routine); Ordered 01/09/18 Ordered By: Brayan Gomez - Discharge Details Anticipated Discharge Date: 01/09/18 - Physicians Team Primary Care Provider: Karen Loaiza Attending Provider: Moriah Richardson Other Providers: Asaf Culp MD
--- NOTE | 2018-01-09 10:50 | FL ---
EXAM DATE: 01/09/2018 9:08 AM EDT AGE/SEX: 82 years / Female INDICATIONS: Difficulty swallowing food, piece of meat was lodged in esophagus mid sternal area. CLINICAL DATA: This is the patient's subsequent encounter. Patient reports that signs and symptoms h ave been present for 2 days and indicates a pain score of 0/10. MEDICAL/SURGICAL HISTORY: None. . EGD w/ dilatation. Left mastectomy COMPARISON: No prior exams available for comparison. FLUORO TIME: 0.9 minutes IMAGE COUNT: 0 FINDINGS: A modified barium swallow was performed with speech pathology. Patient was given a variety of liquids to swallow. For a full detailed report, see report by the speech pathologist. CONCLUSION: Normal exam. Electronically signed by: Juice Church MD 01/09/2018 10:48 AM EDT
--- NOTE | 2018-01-09 10:53 | FL ---
EXAM DATE: 01/09/2018 9:37 AM EDT AGE/SEX: 82 years / Female INDICATIONS: Difficulty swallowing food, piece of meat was lodged in esophagus mid sternal area. CLINICAL DATA: This is the patient's subsequent encounter. Patient reports that signs and symptoms h ave been present for 2 days and indicates a pain score of 0/10. MEDICAL/SURGICAL HISTORY: None. . EGD w/ dilatation. Left mastectomy COMPARISON: No prior exams available for comparison. FLUORO TIME: 2.6 minutes IMAGE COUNT: 50 FINDINGS: Air-contrast views of the hypopharynx demonstrate a normal mucosal surface without filling defect. R apid sequence images of the hypopharynx and cervical esophagus during the passage of barium demonstra te a normal swallowing function. No evidence of aspiration. A prominent cricopharyngeus muscle is ob served but this does not impede the flow of ingested material. Multiphasic examination of the esophag us shows primary peristalsis with intermittent tertiary contractions. There is narrowing at the GE ju nction without ulceration or mucosal abnormality. 3 tiny webs are seen involving the lower thoracic e sophagus just proximal to the GE junction. This does generate stacking of the ingested material for a brief moment within their is relaxation of the lower esophageal sphincter which allows the material to enter the stomach. CONCLUSION: 1. Prominent cricopharyngeus muscle without delay in transit through this segment. 2. Narrowing at the GE junction with appearance consistent with achalasia. 3 small nonobstructive we bs seen involving the lower thoracic esophagus. Electronically signed by: Juice Church MD 01/09/2018 10:52 AM EDT
== END 2018-01-09 12:22 | disposition home or self-care (01) ==
LOC: PHEDA 21:05 → PHED 21:05 → PH3 21:05
PROVIDERS: ADMIT Internal Medicine; ATTEND Internal Medicine